=== PATIENT | female | born 1955 | race Caucasian/White ===

== ENCOUNTER → 2019-02-17 | Day surgery (SDC) | payer BC ==
[~2019-02-17] MED LIST: ACYCLOVIR200 MG PO; CRESTOR5 MG PO; ESTRADIOL1 MG PO; FENTANYL CITRATE/PF 100MCG/2 ML INJ ONE; GLUCAGON FOR INJ 1 MG VIAL ONE; HAIR, SKIN & N1 EAC1 PO; HYDROCHLOROTHIA50 MG PO; HYOSCYAMINE SULFATE 0.5 MG/ML INJ ONE; LIDOCAINE HCL 2% LOCAL INJ 5 ML SDV VIAL INJ ONE; METOCLOPRAMIDE HCL 10 MG/2ML VIAL ONE; METOPROLOL SUCC25 MG PO; MIDAZOLAM HCL 2 MG/2 ML VIAL ONE; PANTOPRAZOLE SO40 MG PO; PREMARIN0.625 MG PO; PROPOFOL IV EMULSION 10 MG/ML 50 ML VIAL ONE; REGLAN10 MG PO; VALTREX500 MG PO
--- OUTSIDE RECORDS SUMMARY | 2019-02-17 12:15 | XMS REPORT ---
Author Author [facility] Address Unknown Phone Unavailable Care Team Providers Care Addiction Counselor Name Role Phone Unavailable Unavailable Problems This patient has no known problems. Allergies, Adverse Reactions, Alerts This patient has no known allergies or adverse reactions. Medications This patient has no known medications. Results Test Description Test Time Test Comments Text Results Atomic Results Result Comments SCR MAMM BILATERAL CAD DIGITAL 2018-10-26 15:49:27 - SCR MAMM BILATERAL CAD DIGITALBILATERAL DIGITAL SCREENING MAMMOGRAM WITH CAD: 10/26/2018CLINICAL: Asymptomatic. Current mammographic images were evaluated by either a [employer] M- Vu or a [employer] ImageChecker CAD (computer aided detection system). Comparison is made to exams dated 10/20/2017 mammogram, 07/29/2016 mammogram, and 09/18/2015 mammogram - [facility]. There are scattered fibroglandular tissues in both breasts. There are benign calcifications in both breasts. No suspicious mass, architectural distortion, malignant type calcification, or lymph node abnormality detected. Breast architecture is stable compared to prior exams.IMPRESSION: BENIGNThere is no mammographic evidence of malignancy. Resume annual screening mammography in one year. Maryanne hastings/tracy:10/26/2018 15:49:27 Shook Machine Operator: Svitlana JAIME, [facility] sent: BIRADS 1-2 Normal Mammogram BI-RADS: 2 Benign
[2019-02-17 17:33] LABS: WBC,FECAL (FECAL LACTOFERRIN) NEGATIVE (NEGATIVE)
[2019-02-17 18:00] VITALS: BP 137/75
--- NOTE | 2019-02-18 00:01 | Operative Report ---
DATE OF PROCEDURE: 02/17/2019 SURGEON: Brent Sagastume MD PROCEDURE: EGD with polypectomy and biopsies; colonoscopy with polypectomy and biopsies. INDICATIONS FOR EGD: Epigastric pain, excessive belching. INDICATIONS FOR COLONOSCOPY: Surveillance colonoscopy, personal history of colon polyps, diarrhea. MEDICATIONS: The patient was done under MAC, please see anesthesiologist's note. PROCEDURE IN DETAIL: With the patient in left lateral decubitus position, a flexible fiberoptic Olympus gastroscope was introduced into the esophagus under direct visualization without any difficulty. There was some patchy erythema noted in distal esophagus. The scope was then advanced with ease into the stomach and the patient is status post gastric stapling and the gastric stapling site was approximately 15 cm distal to the lower esophageal sphincter. The gastroplasty site was traversed with gentle persistent pressure with the scope, which was advanced into the distal body of the stomach and the antrum. Multiple hyperplastic appearing polyps were noted both in the distal and the proximal stomach. The pylorus was intubated with ease and the scope was advanced all the way to the second portion of the duodenum. Biopsies were obtained from the proximal second portion and a duodenal bulb to rule out sprue. The scope was then withdrawn back into the stomach and approximately 15 polyps were removed per snare electrocautery. The mucosa overlying also the antrum as well as the body revealed some patchy areas of erythema and [id number] edema and biopsies were obtained and sent to stain for H. pylori. The scope was then withdrawn above the stapling site and it was retroflexed and mucosa overlying the fundus revealed some minimal hyperplastic appearing polyps and the lower esophageal sphincter appears somewhat incompetent. The cardia appeared to be within normal limits. The scope was then straightened out, it was subsequently withdrawn, patient tolerated procedure well. IMPRESSION: 1. Distal esophagitis, mild. 2. Status post gastric stapling. Stapling site approximately 15 cm distal to GE junction tight, but traversed with gentle persistent pressure with the scope. 3. Gastritis, biopsied; biopsies sent to stain for H. pylori. 4. Gastric polyps, numerous, multiple removed per snare electrocautery. 5. Rule out sprue. PLAN: Follow up histology. Continue Protonix 40 mg one p.o. a.c. b.i.d. Increase Reglan to 10 mg one p.o. a.c. t.i.d. and at bedtime. Add Carafate 1 g p.o. a.c. t.i.d. and at bedtime. PROCEDURE IN DETAIL: The patient was then turned around after adequate lubrication of the anal canal. A flexible fiberoptic Olympus colonoscope was inserted into the rectum with ease and advanced all the way to the cecum. Mucosa overlying the cecum appeared to be within normal limits. The ileocecal valve was intubated and the scope was advanced into the terminal ileum. Biopsies were obtained. The scope was then withdrawn back into the colon. It was then withdrawn slowly and two polyps were hot biopsied from the ascending colon. The transverse colon appeared to be within normal limits. Mild patchy inflammatory changes were noted in the left colon as well as the rectum, multiple random biopsies were obtained. Diverticular disease was noted, also to be scattered. One polyp was hot biopsied, one polyp was snared from the sigmoid colon. The scope was then retroflexed into the distal rectum and small internal hemorrhoids were noted none of which was actively bleeding. The polypectomy site and sigmoid colon were hemoclipped. The scope was then straightened out, it was subsequently withdrawn, patient tolerated the procedure well. An adequate amount of the fecal aspirate was obtained and sent for the appropriate stool studies. IMPRESSION: 1. Ascending colon polyps x2, hot biopsied. 2. Diverticulosis. 3. Mild patchy left-sided colitis. 4. Sigmoid colon polyps x2, one snared, site hemoclipped and one hot biopsied. 5. Proctitis, mild. 6. Internal hemorrhoids, none actively bleeding. PLAN: Follow up histology. Follow up stool studies. Initiate Bentyl 10 mg one p.o. t.i.d. Start VSL #3 one p.o. daily. The patient might benefit from a followup colonoscopy in 3 years. Brent Sagastume MD [facility]/MODL /[id number] cc: Romario Lopez
[2019-02-18 14:20] LABS: C DIFFICILE TOXIN A&B AMP PROB NEGATIVE (NEGATIVE)
== END | disposition home or self-care (01) ==
LOC: OR 12:00
PROVIDERS: ATTEND Internal Medicine Gastroenterology
DX: Z12.11 Encounter for screening for malignant neoplasm of colon (principal); D12.2 Benign neoplasm of ascending colon; K31.7 Polyp of stomach and duodenum; K57.30 Diverticulosis of large intestine without perforation or abscess without bleeding; K51.50 Left sided colitis without complications; K62.89 Other specified diseases of anus and rectum; K64.8 Other hemorrhoids; K21.0 Gastro-esophageal reflux disease with esophagitis; R19.7 Diarrhea, unspecified; R10.13 Epigastric pain; Z86.010 Personal history of colon polyps; I10 Essential (primary) hypertension; E78.00 Pure hypercholesterolemia, unspecified; K29.70 Gastritis, unspecified, without bleeding
CPT/HCPCS: 43239; 45384; 45385; 83630; 83993; 87045; 87177; 87328; 87493; 93005; J1610; J1980; J2001; J2250; J2704; J2765; 43251; 45378; 45380

== ENCOUNTER → 2019-12-20 | Day surgery (SDC) | payer BC ==
[~2019-12-20] MED LIST changes: -GLUCAGON FOR INJ 1 MG VIAL ONE; -HYOSCYAMINE SULFATE 0.5 MG/ML INJ ONE; -LIDOCAINE HCL 2% LOCAL INJ 5 ML SDV VIAL INJ ONE; -METOCLOPRAMIDE HCL 10 MG/2ML VIAL ONE; +PANTOPRAZOLE 40 MG 10ML VIAL ONE; +PROPOFOL IV EMULSION 10 MG/ML 20 ML VIAL ONE; -PROPOFOL IV EMULSION 10 MG/ML 50 ML VIAL ONE
[2019-12-20 10:50] VITALS: BP 117/69
--- NOTE | 2019-12-20 12:07 | Operative Report ---
DATE OF PROCEDURE: 12/20/2019 SURGEON: Brent Sagastume MD PROCEDURES: EGD with esophageal dilatation, gastric stapling site dilatation and pyloric channel dilatation along with biopsies. INDICATIONS FOR EGD: Dysphagia, nausea, and vomiting. MEDICATIONS: The patient was done under MAC, please see anesthesiologist's note. PROCEDURE IN DETAIL: With the patient in the left lateral decubitus position, a flexible fiberoptic Olympus gastroscope was introduced into the esophagus under direct visualization without any difficulty. There was some patchy erythema noted in distal esophagus. A mild stricture was noted at the GE junction that was dilated to size 52-Malagasy Saunders. The scope was then advanced with ease into the stomach and several polyps were noted in the body of the stomach, some were partially excised with the cold biopsy forceps. Gastric stapling site was noted 15 cm distal to the GE junction and it was fairly tight and that was dilated to size 20 mm per TTS balloon dilators. The scope was then advanced to the distal antrum traversing the gastric stapling site. The pyloric channel was also strictured and that was dilated to size 20 mm per TTS balloon dilators. Biopsies were obtained from the antrum and sent to stain for H. pylori. The scope was then advanced all the way to the second portion of the duodenum. The scope was then withdrawn slowly, mucosa overlying the proximal second portion and duodenal bulb appeared to be within normal limits. The scope was then withdrawn back into the stomach above the gastric stapling site and was retroflexed, mucosa overlying the fundus and the cardia were grossly unremarkable. The scope was then straightened out, it was subsequently withdrawn, and the patient tolerated the procedure well. IMPRESSION: 1. Distal esophagitis. 2. Esophageal stricture, GE junction, dilated to size 52-Malagasy Saunders. 3. Gastric polyps, body, hyperplastic-appearing, some partially excised with the cold biopsy forceps. 4. Gastric stapling site 15 cm distal to GE junction, tight, dilated to size 20 mm per TTS balloon dilators. 5. Pyloric channel stricture dilated to size 20 mm per TTS balloon dilators. PLAN: Follow up histology. Continue Protonix 40 mg 1 p.o. before meals b.i.d., Carafate 1 g p.o. before meals t.i.d. and at bedtime, Reglan 10 mg 1 p.o. before meals t.i.d. and at bedtime. MD MARIMAR Rico/BEATRICE /[id number] cc: Romario Lopez
== END | disposition home or self-care (01) ==
LOC: OR 07:46
PROVIDERS: ATTEND Internal Medicine Gastroenterology
DX: K22.2 Esophageal obstruction (principal); K20.9 Esophagitis, unspecified; K31.7 Polyp of stomach and duodenum; K31.1 Adult hypertrophic pyloric stenosis; K21.9 Gastro-esophageal reflux disease without esophagitis; R11.2 Nausea with vomiting, unspecified; R13.19 Other dysphagia; I10 Essential (primary) hypertension; Z01.810 Encounter for preprocedural cardiovascular examination; K29.50 Unspecified chronic gastritis without bleeding
CPT/HCPCS: 43245; 43450; 93005; C1726; C9113; J2250; J2704; J3010; 43239